=== PATIENT | female | born 1970 | race Caucasian/White ===

== ENCOUNTER 2016-10-14 10:51 | Day surgery (SDC) | payer OTHER ==
[2016-10-13 12:38] VITALS: BMI 22.8
[2016-10-14] VITALS (13 sets, daily range): BP systolic 105–118; BP diastolic 50–76; PULSE 89–120; RESP 14–19; Ht 167.6 cm; Wt 64.0 kg
[~2016-10-14] VITALS: Ht 167.6 cm; Wt 64.0 kg
[~2016-10-14 10:51] MED LIST: BACTDS PO; CIPR500T4 PO; D-ME118S6 PO; HYDR-3498 PO; MECL25TA2 PO; NAPR-260 PO; ONDA4TAB8 PO; PHEN-538 PO
[2016-10-14] MEDS ORDERED: CEFTRIAXONE 1 GM/50 ML (PMX) 50 ML IVPB ONE (12:00)
--- NOTE | 2016-10-14 12:13 | HPN ---
Date/Time of Note Date/Time of Note DATE: 10/14/16 TIME: 12:13 Interval H&P Admission Note Pt. seen H&P reviewed: No system changes EVER VERGARA MD Oct 14, 2016 12:13
[2016-10-14] MEDS ORDERED: MAGN400T38 PO (12:21)
[2016-10-14] MEDS ORDERED: MULT1CAP20 PO (12:21)
[2016-10-14] MEDS ORDERED: ONDANSETRON 4 MG INJ ONE (12:25)
[2016-10-14] MEDS ORDERED: PROPOFOL 20 ML ONE ×2 (12:25→12:42)
[2016-10-14] MEDS ORDERED: FENTAnyl 50 MCG/ML VIAL ONE ×2 (12:25→13:00)
[2016-10-14] MEDS ORDERED: MIDAZOLAM 1 MG/ML 2 ML INJ ONE (12:25)
[2016-10-14] MEDS ORDERED: DIPHENHYDRAMINE 50 MG INJ IV PRN (13:00)
[2016-10-14] MEDS ORDERED: ONDANSETRON 4 MG INJ IV PRN ×2 (13:00→14:30)
[2016-10-14] MEDS ORDERED: METOCLOPRAMIDE 10 MG INJ IV PRN (13:00)
[2016-10-14] MEDS ORDERED: MEPERIDINE 25 MG INJ IV PRN (13:00)
[2016-10-14] MEDS ORDERED: OXYCODONE/ACETAMINOPHEN (5/325) TAB PO PRN ×2 (13:00)
[2016-10-14] MEDS ORDERED: HYDROmorphONE (0.2 MG/ML) 10ML SYG IV PRN ×3 (13:00)
[2016-10-14] MEDS ORDERED: FUROSEMIDE 20 MG INJ ONE (13:40)
[2016-10-14] MEDS ORDERED: HYDROCODONE/APAP (5/325) TAB PO PRN (14:30)
--- NOTE | 2016-10-14 16:34 | RADRPT ---
PROCEDURE: Fluoroscopy. CLINICAL INDICATION: Intraoperative fluoroscopic guidance. Left ESWL and stent placement. TECHNIQUE: Fluoroscopic guidance provided for intraoperative procedure. COMPARISON: CT and twelfth 08/16/2016. FINDINGS: 219.9 seconds fluoroscopy time was used. 51 intraoperative spot radiographs obtained. Left ureteral stent placement performed under fluoroscopic guidance with ESWL performed of multiple left renal ca lculi . No osseous abnormality. IUD in place.. IMPRESSION: Fluoroscopic guidance provided for intraoperative procedure. Status post left ureteral stent placeme nt and left renal calculus lithotripsy. RPTAT:AAJJ Physician Fanny Date Time Electronically viewed and signed by Physician Fanny on 10/14/2016 16:33 LAWSON/
--- NOTE | 2016-10-14 16:35 | RADRPT ---
PROCEDURE: XR Abdomen. CLINICAL INDICATION: Kidney stones TECHNIQUE: AP abdomen x-ray. COMPARISON: None. FINDINGS: The bowel gas pattern is normal. There is no evidence of free air or obstruction. Double pigtail lef t ureteral stent in place. Multiple calcifications overlie the left renal shadow. Multiple phlebol iths the pelvis. IUD in place. The osseus structures are unremarkable. IMPRESSION: 1. Double pigtail left ureteral stent . Multiple left renal calcifications. RPTAT:AAJJ Neymar Kwon Physician Date Time Electronically viewed and signed by Physician Fanny on 10/14/2016 16:35 LAWSON/
--- NOTE | 2016-10-14 16:37 | OPR ---
DATE OF OPERATION: 10/14/2016 PREOPERATIVE DIAGNOSIS: Left renal stone 11 mm in the left upper pole. She also has two other stone s, one in the middle pole bulmaro around 4 mm and one in the lower by 8 x 5 mm in size. POSTOPERATIVE DIAGNOSIS: Left renal stone 11 mm in the left upper pole. She also has two other ston es, one in the middle pole bulmaro around 4 mm and one in the lower by 8 x 5 mm in size. OPERATION PERFORMED: Cystoscopy, insertion of left ureteral JJ stent 6-Belgian x 26 cm long and left extracorporeal shock wave lithotripsy. TECHNIQUE: The patient was brought to the operating room. General anesthesia was induced. The pat ient was given 1 gram of ceftriaxone IV at the start of the procedure. The patient was then given g eneral anesthesia and then positioned in the lithotomy position. The genital area was prepped and d raped in the usual sterile manner. A #21 Belgian cystoscope sheath was introduced into the bladder. Urine was collected from the bladder for culture and sensitivity. The patient appeared to have inf ection. The left ureteral orifice was identified then cannulated with a 5-Belgian open ended and a G lidewire 0.035 was advanced under fluoroscopy all the way up to the kidney. Once it reached the jamie stephens then the open-ended was removed and then I passed initially a 6-Belgian x 22 cm long JJ stent, bu t it appears that the stent was not long enough for her even though the patient is 5 feet 6 inches t all. Then, I changed it to a 6-Belgian x 24 cm long and again, this one was not long enough, so I manriquez d to put a 6-Belgian x 26 cm long JJ stent and that did settle well with the proximal curl curling in to the kidney and the distal curl into the bladder. At that moment, the bladder was emptied. The s cope was removed and the patient was repositioned in the flat position and the stone in the upper pa rt of the bulmaro of the left kidney was then visualized on both monitor screens. The x-ray was coned down to minimize the radiation to the patient and once the stone was localized on both screens, the shock wave lithotripsy was initiated. The stone was regularly checked and appears to be broken wel l. In fact, as we gave the patient about 1500 shock waves the stone by then has broken very well an d one hardly could see any larger fragment and most of the fragments that were seen were 2 mm or les s. At that moment, we decided to then try to break the other 2 stones that she has in the left kidn ey. First, we then went to the stone in the middle pole bulmaro and that took about 250 shock waves a nd that broke right away. Then, we went onto the stone in the lower pole bulmaro and the same thing h appened with that stone and it did break good as well. The patient therefore received a total of 20 00 shock waves to all of these 3 stones that did break, very well and before the end of the procedur e the patient was given 10 mg of Lasix IV by the anesthesiologist. Then, at the end of the procedur es, she was transferred to recovery room in stable and satisfactory condition. Dictated By: EVER JADE/MADIHA Conf#: [id number] DID#: [id number]
== END 2016-10-14 17:05 | disposition home or self-care (01) ==
LOC: SDS 10:51
PROVIDERS: ATTEND Urology
DX: N20.0 Calculus of kidney (principal)
CPT/HCPCS: 52356; 74000; 74430; 84703; 87086; C2617; J0696; J1170; J1940; J2175; J2250; J2405; J3010; Z7512; Z7610

== ENCOUNTER 2016-12-13 10:31 | Emergency (ER) | payer OTHER ==
[~2016-12-13] VITALS: Ht 160 cm; Wt 64.5 kg
[~2016-12-13 10:31] MED LIST changes: -BACTDS PO; -CIPR500T4 PO; -D-ME118S6 PO; -HYDR-3498 PO; +MAGN400T38 PO; -MECL25TA2 PO; +MULT1CAP20 PO; -NAPR-260 PO; -ONDA4TAB8 PO; -PHEN-538 PO
[2016-12-13 10:48] VITALS: Ht 160 cm; Wt 64.5 kg
[2016-12-13] MEDS ORDERED: CEPH-443 PO (12:46)
[2016-12-13] MEDS ORDERED: BEN25 PO (12:46)
[2016-12-13] MEDS ORDERED: IBUP-1542 PO (12:46)
--- NOTE | 2016-12-13 13:04 | ERD ---
ER Documentation Chief Complaint Date/Time DATE: 12/13/16 TIME: 13:02 Chief Complaint RIGHT DORSAL FOOT PAIN,REDNESS.POSSIBLE INSECT BITE. HPI 46-year-old female presents with right dorsal foot pain and swelling that started 2 days ago. She states that she got home after the park and noticed that there was a small area of redness. The area is very itchy to her, she denies any trauma fevers or chills. ROS All systems reviewed and are negative except as per history of present illness. Medications Home Meds Active Scripts Ibuprofen* (Motrin*) 600 Mg Tab, 600 MG PO Q6, #20 TAB Prov:MAYNOR MARIE PA-C 12/13/16 Cephalexin* (Keflex*) 500 Mg Capsule, 500 MG PO QID for 5 Days, CAP Prov:MAYNOR MARIE PA-C 12/13/16 Diphenhydramine Hcl* (Benadryl*) 25 Mg Cap, 25 MG PO Q6, #15 CAP Prov:MAYNOR MARIE PA-C 12/13/16 Reported Medications Multivitamin (Multivitamins) 1 Each Capsule, 1 EACH PO DAILY, CAP 10/14/16 Magnesium Oxide (Magnesium) 400 Mg Tablet, 400 MG PO DAILY, TAB 10/14/16 Allergies Allergies: Coded Allergies: No Known Drug Allergies (Verified Allergy, Unknown, 10/14/16) PMhx/Soc History of Surgery: Yes (C-SEC X3, LT KIDNEY SX) Anesthesia Reaction: No Hx Neurological Disorder: No Hx Respiratory Disorders: No Hx Cardiac Disorders: No Hx Psychiatric Problems: No Hx Miscellaneous Medical Probl: No Hx Alcohol Use: No Hx Substance Use: No Hx Tobacco Use: No Smoking Status: Never smoker Physical Exam Vitals Physical Exam General: Well-developed, well-nourished. The patient appears in no acute distress. HEENT: Head is normocephalic, atraumatic. No scleral icterus. Neck: Supple. Nontender. Lungs: Clear to auscultation. Normal air movement. Heart: Regular rate and rhythm. S1 and S2 are normal. No murmurs, gallops, or rubs. Abdomen: Nondistended. Extremities: No clubbing or cyanosis. Moving extremities x 4. No weakness. Neurologic: Alert and oriented 3. No focal deficits. Normal speech and gait. Skin: Normal turgor. No rash or lesions. Procedures/MDM 46-year-old female presents with a insect bite, with localized erythema, no sign of abscess. There are no signs of necrotic tissue, limb threatening process. Departure Diagnosis: Primary Impression: Insect bite Condition: Good Patient Instructions: Insect Bite Additional Instructions: Call your primary care doctor TOMORROW for an appointment during the next 1-2 days.See the doctor sooner or return here if your condition worsens before your appointment time. MAYNOR MARIE PA-C Dec 13, 2016 13:04 MAYNOR MARIE PA-C Dec 13, 2016 13:04
== END 2016-12-13 13:17 | disposition home or self-care (01) ==
LOC: FTE 10:31
DX: S90.861A Insect bite (nonvenomous), right foot, initial encounter (principal); W57.XXXA Bitten or stung by nonvenomous insect and other nonvenomous arthropods, initial encounter; Y92.9 Unspecified place or not applicable
CPT/HCPCS: 99283

== ENCOUNTER 2017-10-05 10:23 | Inpatient (IN) | END 2017-10-08 13:05 | disposition home or self-care (01) | DRG 690 ==

== ENCOUNTER 2018-05-23 10:44 | Day surgery (SDC) | END 2018-05-23 19:53 | disposition home or self-care (01) ==

== ENCOUNTER 2018-06-13 20:05 | Inpatient (IN) | END 2018-06-15 16:40 | disposition home or self-care (01) | DRG 871 ==